=== PATIENT | male | born 1995 | race Caucasian/White ===

== ENCOUNTER 2025-01-12 21:23 | Emergency (ER) | payer SELFPAY ==
[2025-01-12] MEDS ORDERED: Sodium Chloride 0.9% 2.5 ML Syringe FLUSH PRN (21:41)
[2025-01-12] MEDS ORDERED: Sodium Chloride 0.9% 10 ML Syringe FLUSH PRN (21:41)
[2025-01-12] MEDS: Fluorescein 1 MG Ophth Strip EYELF ONE (21:52)
[2025-01-12] MEDS: Sodium Chloride 0.9% 1,000 ML IV SCH (21:52)
[2025-01-12] MEDS: Proparacaine 0.5% Ophth Soln 15 ML Bottle EYELF STA (21:52)
[2025-01-12 22:05] LABS: BASOPHILS ABSOLUTE AUTO 0.05 K/uL (0.00-0.20); BASOPHILS PERCENT AUTO 0.4 % (0.0-1.0); EOSINOPHILS PERCENT AUTO 0.8 % (0.0-6.0); HEMATOCRIT 45.4 % (42.0-52.0); HEMOGLOBIN 15.6 g/dL (14.0-18.0); IMMATURE GRAN ABSOLUTE AUTO 0.04 K/uL (0.00-0.05); IMMATURE GRAN PERCENT AUTO 0.3 % (0.0-0.4); LYMPHOCYTES ABSOLUTE AUTO 2.53 K/uL (1.00-4.80); LYMPHOCYTES PERCENT AUTO 19.8 % (24.0-44.0); MEAN CORPUSCULAR HEMOGLOBIN 29.7 pg (28.0-32.0); MEAN CORPUSCULAR HGB CONC 34.4 g/dL (32.0-36.0); MEAN CORPUSCULAR VOLUME 86.5 fL (83.0-99.0); MEAN PLATELET VOLUME 10.2 fL (9.4-12.4); MONOCYTES ABSOLUTE AUTO 1.12 K/uL (0.00-0.80); MONOCYTES PERCENT AUTO 8.7 % (0.0-8.0); NEUTROPHILS ABSOLUTE AUTO 8.97 K/uL (1.80-7.70); PLATELET COUNT,PLT 273 K/uL (150-400); RED BLOOD CELL COUNT 5.25 M/uL (4.52-5.90); WHITE BLOOD CELL COUNT,WBC 12.81 K/uL (3.9-11.3)
[2025-01-12 22:14] LABS: APPEARANCE,URINE CLEAR; BILIRUBIN,URINE NEGATIVE (NEGATIVE); COLOR,URINE YELLOW; GLUCOSE,URINE NEGATIVE (NEGATIVE); KETONES,URINE NEGATIVE (NEGATIVE); LEUKOCYTE ESTERASE,URINE NEGATIVE (NEGATIVE); NITRITE,URINE NEGATIVE (NEGATIVE); OCCULT BLOOD,URINE MODERATE (NEGATIVE); PH,URINE 5.5 (5.0-8.0); PROTEIN,URINE NEGATIVE (NEGATIVE); UROBILINOGEN,URINE 0.2 EU/dL (<2.0)
[2025-01-12 22:22] LABS: CALCIUM 9.2 mg/dL (8.5-10.1); CARBON DIOXIDE,CO2 30.3 mmol/L (21.0-32.0); EST CRCL DRUG DOSING (CG) 100.13 mL/min; POTASSIUM,K 3.5 mmol/L (3.5-5.1)
[2025-01-12 22:25] LABS: BACTERIA,URINE RARE (NEGATIVE); EPITHELIAL CELLS,URINE RARE (NONE-FEW); RBC,URINE 0-4 (0-2/HPF); WBC,URINE 0-1 (0-5/HPF)
[2025-01-12 22:47] LABS: CORONAVIRUS COVID-19 NAA NEGATIVE (NEGATIVE); INFLUENZA A NAA NEGATIVE (NEGATIVE); INFLUENZA B NAA NEGATIVE (NEGATIVE)
== END 2025-01-12 23:18 | disposition home or self-care (01) ==
LOC: MW.ED 21:23
DX: H10.33 Unspecified acute conjunctivitis, bilateral (principal); B34.9 Viral infection, unspecified
CPT/HCPCS: 36415; 70250; 70360; 70450; 71046; 74019; 80048; 81001; 85025; 87651; 99284; J7030; 0240U; J3490

== ENCOUNTER 2025-02-26 18:48 | Emergency (ER) | payer OTHER ==
[2025-02-26 19:06] LABS: BASOPHILS ABSOLUTE AUTO 0.05 K/uL (0.00-0.20); BASOPHILS PERCENT AUTO 0.4 % (0.0-1.0); EOSINOPHILS ABSOLUTE AUTO 0.05 K/uL (0.00-0.45); EOSINOPHILS PERCENT AUTO 0.4 % (0.0-6.0); IMMATURE GRAN ABSOLUTE AUTO 0.04 K/uL (0.00-0.05); IMMATURE GRAN PERCENT AUTO 0.3 % (0.0-0.4); LYMPHOCYTES ABSOLUTE AUTO 2.29 K/uL (1.00-4.80); LYMPHOCYTES PERCENT AUTO 17.5 % (24.0-44.0); MEAN PLATELET VOLUME 9.8 fL (9.4-12.4); MONOCYTES ABSOLUTE AUTO 0.87 K/uL (0.00-0.80); MONOCYTES PERCENT AUTO 6.6 % (0.0-8.0); NEUTROPHILS ABSOLUTE AUTO 9.81 K/uL (1.80-7.70); NEUTROPHILS PERCENT AUTO 74.8 % (41.0-71.0); NRBC ABSOLUTE 0.00 K/uL (0.00-0.02); NRBC PERCENT 0.0 /100WBC (0.0-0.2); PLATELET COUNT,PLT 302 K/uL (150-400); RED BLOOD CELL COUNT 5.32 M/uL (4.52-5.90); WHITE BLOOD CELL COUNT,WBC 13.11 K/uL (3.9-11.3)
[2025-02-26] MEDS: Iopamidol 755 MG/ML 500 ML Multipack Bottle IVPUSH STA (19:14)
[2025-02-26 19:30] LABS: BLOOD UREA NITROGEN,BUN 12.0 mg/dL (7.0-18.0); CARBON DIOXIDE,CO2 22.6 mmol/L (21.0-32.0); CHLORIDE,CL 106.0 mmol/L (98-107); CREATININE 1.0 mg/dL (0.8-1.3); EST CRCL DRUG DOSING (CG) 107.35 mL/min; GLUCOSE RANDOM 106.0 mg/dL (74-106); POTASSIUM,K 4.0 mmol/L (3.5-5.1); SODIUM,NA 142.0 mmol/L (136-148)
[2025-02-26 19:32] LABS: ESTIMATED GFR 106.0 mL/min (>60)
[2025-02-26] MEDS: Ketorolac 30 MG/ML SDV IVPUSH ONE (21:24)
== END 2025-02-26 21:48 | disposition home or self-care (01) ==
LOC: MW.ED 18:48
DX: S40.012A Contusion of left shoulder, initial encounter (principal); S00.12XA Contusion of left eyelid and periocular area, initial encounter; S20.412A Abrasion of left back wall of thorax, initial encounter; M25.561 Pain in right knee; Z79.899 Other long term (current) drug therapy; V58.5XXA Driver of pick-up truck or van injured in noncollision transport accident in traffic accident, initial encounter; Y93.89 Activity, other specified
CPT/HCPCS: 36415; 70450; 70450-26; 71260; 71260-26; 73562-26-RT; 73562-RT; 74177; 74177-26; 80048; 85025; 96374; 99284; 99284-25; A9270-GY; J1885; Q9967

== ENCOUNTER 2025-02-28 13:53 | Emergency (ER) | payer SELFPAY ==
[2025-02-28] MEDS: Ketorolac 30 MG/ML SDV IM STA (15:20)
[2025-02-28] MEDS: Ondansetron 4 MG Tab.DIS PO ONE (15:20)
[2025-02-28] MEDS: Acetaminophen/HYDROcodone 325-5 MG Tab PO ONE (18:32)
== END 2025-02-28 19:08 | disposition home or self-care (01) ==
LOC: MW.ED 13:53
DX: G44.309 Post-traumatic headache, unspecified, not intractable (principal); Z79.899 Other long term (current) drug therapy; Z75.3 Unavailability and inaccessibility of health-care facilities
CPT/HCPCS: 70250; 70360; 70450; 71046; 74019; 96372; 99284; A9270; J1885